=== PATIENT | female | born 1985 ===

== ENCOUNTER 2022-06-15 09:16 | Outpatient (CLI) | payer OTHER, SELFPAY ==
--- NOTE | 2022-06-15 09:15 | CRLHL7_ITS ---
For Patients: As a result of the Cures Act, medical imaging exams and procedure reports are released immediately into your electronic medical record. You may view this report before your referring provider. If you have questions, please contact your health care provider. HISTORY: RULE OUT LIVER DAMAGE, PATIENT WITH HEPATITIS C TECHNIQUE: Grayscale ultrasound examination of the abdomen and retroperitoneum with 2D and spectral analysis and color Doppler interrogation of the hepatic vessels. COMPARISON: CT abdomen and pelvis 12/22/2019 FINDINGS: The liver is normal in size and is increased in echotexture. There is no significant biliary dilatation, and the common bile duct measures 0.5 cm. There is no ascites. The portal and hepatic veins are patent with normal direction of flow. The hepatic artery is patent with normal waveform. Splenic and superior mesenteric veins are patent with normal direction of flow. Intrahepatic IVC appears unremarkable. Mild gallbladder sludge noted. No gallstones. There is no gallbladder wall thickening, pericholecystic fluid, or elicited sonographic Jones`s sign. The gallbladder wall measures 1 millimeter. The kidneys are normal in size. The right kidney measures 10.0 cm and the left kidney measures 11.2 cm. Normal echogenicity is seen in both kidneys. There is no hydronephrosis. No shadowing echogenic focus is identified to suggest nephrolithiasis. The spleen is normal in size, measuring 11.0 cm. The visualized pancreas is sonographically unremarkable. IMPRESSION: Fatty liver. Normal directional flow of the splanchnic vessels. Mild gallbladder sludge. Dictated by Basil Hyde MD @ 06/15/2022 11:17:39 AM (Electronically Signed)
== END 2022-06-15 09:17 | disposition home or self-care (01) ==
PROVIDERS: PCP Nurse Practitioner Family; Visit Provider Nurse Practitioner Family
DX: B19.20 Unspecified viral hepatitis C without hepatic coma (principal); K76.0 Fatty (change of) liver, not elsewhere classified; K82.9 Disease of gallbladder, unspecified
CPT/HCPCS: 76700; 93975